=== PATIENT | female | born 1960 | race Two or more races ===

== ENCOUNTER → 2024-10-21 | Outpatient (CLI) | payer MEDICAID, SELFPAY ==
--- NOTE | 2024-10-21 09:30 | XR_ITS ---
EXAMINATION: PET/CT FUSION SKULL TO THIGH EXAM DATE AND TIME: October 21, 2024 1111 hours INDICATIONS: Diagnosis solitary pulmonary nodule on outside imaging this month CTDI:vol (mGy) 6.85 DLP: (mGycm) 626 PROCEDURE: 13.54 mCi FDG was administered intravenously To allow for distribution and uptake of radiotracer, the patient was allowed to rest quietly in a shielded room. Imaging was performed on an integrated 16-slice PET/CT scanner, with scanning from the skull base to the mid thigh. Serum blood glucose at the time of the injection was measured 99 mg/dL. CT scanning was performed without oral or intravenous contrast material. FINDINGS: Head and Neck: There is no luis hypermetabolism in the neck. The visualized portions of the brain are normal in appearance on CT. Chest: Hypermetabolic pulmonary nodules left lower lobe, 8 mm, 6 mm, 4 mm, 11 mm, 14 mm, 11 mm, 6 mm, 5 mm, 14 mm No pleural disease Abdomen and Pelvis: There is no luis hypermetabolism in retroperitoneal or pelvic chains. The spleen is normal in size and FDG avidity. Musculoskeletal: Marrow uptake is within normal range. IMPRESSION: Multiple hypermetabolic pulmonary nodules left lower lobe
== END | disposition home or self-care (01) ==
LOC: CDIM 09:50
PROVIDERS: Referring Provider Specialist; Visit Provider Specialist
DX: R91.8 Other nonspecific abnormal finding of lung field (principal)
CPT/HCPCS: 78815; A9552

== ENCOUNTER → 2025-03-15 | Outpatient (CLI) | payer MEDICAID, SELFPAY ==
--- NOTE | 2025-03-15 08:30 | XR_ITS ---
Examination: CT chest, without intravenous contrast. Sagittal and coronal 2-D reconstructions. Exam date and time: March 15, 2025 0831 hours INDICATIONS: PET/CT scan October 21, 2024 multiple pulmonary nodules CTDI:vol (mGy) 12.4 DLP: (mGycm) 484 Technique: Multiple 3.0 mm axial sections of the chest to been obtained. Bone and lung density settings are obtained. Sagittal and coronal 2-D reconstructions have been obtained. Low dose protocols were performed. One or more of the following dose reduction techniques were used; automated exposure control, adjustment of the mA and/or KV according to patient size, use of iterative reconstruction technique. Findings: No thoracic aortic aneurysmal dilatation Pulmonary artery segments are not enlarged Mild calcification left anterior descending coronary artery No pathologic mediastinal lymphadenopathy 7 mm pulmonary nodule posterior left lung image 165 10 mm pulmonary nodule posterior left lung image 169 8mm pulmonary nodule posterior left lung image 173 5 mm pulmonary nodule posterior left lung image 184 6 mm pulmonary nodule posterior left lung image 185 4 mm pulmonary nodule lingular segment image 209 2 mm pulmonary nodule lingular segment image 224 10 mm pulmonary nodule left lower lobe image 244 No pneumonia or pulmonary edema No visualized liver or splenic lesions No gallstones Kidneys partially visualized no hydronephrosis Moderate osteopenia IMPRESSION: Multiple pulmonary nodules as above, with this study as baseline recommend continued 6 month follow-up CT chest without contrast
== END | disposition home or self-care (01) ==
LOC: CCTX 08:06
DX: R91.8 Other nonspecific abnormal finding of lung field (principal)
CPT/HCPCS: 71250

== ENCOUNTER → 2025-06-15 | Outpatient (CLI) | payer MEDICAID, SELFPAY ==
[2025-06-13 09:19] VITALS: BMI 36.3
[2025-06-14 10:52] LABS: Basophils # (Auto) 0.0 Thou/mm3 (0.0-0.2); Basophils % (Auto) 0 % (0-2.5); Eosinophils # (Auto) 0.2 Thou/mm3 (0.0-0.5); Eosinophils % (Auto) 2 % (0-10); Hematocrit 40.1 % (36.0-46.0); Hemoglobin 13.4 g/dL (12.0-16.0); Immature Granulocytes Auto 0.02 Thou/mm3 (0.00-0.00); Lymphocytes # (Auto) 1.9 Thou/mm3 (1.0-4.8); Lymphocytes % (Auto) 23 % (10-50); Mean Corpuscular HGB Conc 33.4 g/dl (31.0-37.0); Mean Corpuscular Hemoglobin 32.0 pg (25.0-35.0); Mean Corpuscular Volume 96 fL (80-100); Monocytes # (Auto) 0.5 Thou/mm3 (0.0-0.8); Monocytes % (Auto) 6 % (0-12); Neutrophils # (Auto) 5.5 Thou/mm3 (1.8-7.7); Neutrophils % (Auto) 68 % (37-80); Nucleated Red Blood Cell # 0.00 Thou/mm3 (0.00-0.00); Nucleated Red Blood Cell % 0 /100 WBC (0); Platelet Count 239 Thou/mm3 (140-440); RDW Standard Deviation 43.8 fL (36.4-46.3); Red Blood Count 4.19 Miln/mm3 (4.00-5.20); White Blood Count 8.1 Thou/mm3 (3.6-11.0)
[2025-06-14 10:59] LABS: Blood Urea Nitrogen 8 mg/dL (9-23); Creatinine (Component) 0.8 mg/dL (0.6-1.3); Estimated Creatinine Clearance 70.3 mL/min (>60); INR 1.0 (0.9-1.3); Partial Thromboplastin Time 25.6 Seconds (22.0-36.0); Prothrombin Time 10.5 Seconds (9.0-12.2); eGFR > 60 See Note
[2025-06-15 07:22] VITALS: BP 130/77; PULSE 62; RESP 20; TEMP 36.4; O2SAT 98
--- NOTE | 2025-06-15 09:23 | XR_ITS ---
Examination: CT chest, without intravenous contrast. Sagittal and coronal 2-D reconstructions. Exam date and time: April 15, 2025, 2128 hours INDICATIONS: History pulmonary nodules, preop lung biopsy CTDI:vol (mGy) 13.1 DLP: (mGycm) 171 Technique: Multiple 3.0 mm axial sections of the chest to been obtained. Bone and lung density settings are obtained. Sagittal and coronal 2-D reconstructions have been obtained. Low dose protocols were performed. One or more of the following dose reduction techniques were used; automated exposure control, adjustment of the mA and/or KV according to patient size, use of iterative reconstruction technique. Findings: Images demonstrate subcentimeter soft pulmonary nodules Risk for biopsies of these nodules is extremely high and yield probability very low IMPRESSION: Recommend 3 to 6-month follow-up CT chest without contrast
[2025-06-15 09:54] VITALS: BP 143/55; PULSE 52; RESP 20; TEMP 36.9; O2SAT 96
[2025-06-15 09:57] VITALS: BP 143/55; PULSE 56; RESP 20; TEMP 36.9; O2SAT 97
--- NOTE | 2025-06-15 10:30 | PC.NURSE ---
0722 patient in [employer] pre op scheduled for ct guided left lower lobe pulmonary nodule biopsy [address] department, consent signed, order received for CT chest prior to lung biopsy procedure [address] table for CT scan only 100[address] Dr. [address] review CT chest images and cancelled ct lung biopsy procedure, patient was explained the reason of cancellation, then was taken off CT table and taken to [employer] field lab[employer] for patient to dress to own clothe. IV removed, patient discharged home with all belongings accompanied by daughter Alfreda. NO lung biopsy procedure was completed today
== END | disposition home or self-care (01) ==
PROVIDERS: Radiology Diagnostic Radiology; PCP Physician Assistant; Referring Provider Specialist; Visit Provider Internal Medicine Hematology & Oncology
DX: R91.8 Other nonspecific abnormal finding of lung field (principal); Z01.812 Encounter for preprocedural laboratory examination; Z53.8 Procedure and treatment not carried out for other reasons
CPT/HCPCS: 36415; 71250; 82565; 84520; 85025; 85610; 85730